=== PATIENT | female | born 1935 | race Caucasian/White ===

== ENCOUNTER 2018-07-07 15:21 | Outpatient (CLI) | payer MEDICARE ==
[2018-07-07 16:04] LABS: Bilirubin Negative (Negative); Blood, Urine Small (Negative); Clarity Clear (Clear); Glucose, Urine (Dipstick) Negative (Negative); Leukocyte Small (Negative); Nitrite Negative (Negative); Protein, Urine (Dipstick) Negative (Neg-Trace); Urobilinogen 0.2 mg/dL (0.2-1.0); pH, Urine 5.5 (5.0-9.0)
[2018-07-07 16:07] LABS: Specific Gravity, Urine 1.007 (1.002-1.036)
[2018-07-07 16:15] LABS: RBC/HPF 21-50 HPF (0-3); WBC/HPF 21-50 HPF (0-3)
[2018-07-07 16:16] LABS: Bacteria/HPF Rare-Few HPF (None Seen); Squamous Epithelial 0-3 HPF (0-3)
== END 2018-07-07 15:22 | disposition home or self-care (01) ==
LOC: MADLAB 15:21
PROVIDERS: ATTEND Family Medicine
DX: I48.91 Unspecified atrial fibrillation (principal); I25.10 Atherosclerotic heart disease of native coronary artery without angina pectoris
CPT/HCPCS: 81001; 87086

== ENCOUNTER 2019-06-29 10:09 | Outpatient (CLI) | payer MEDICARE ==
[2019-06-29 10:46] LABS: Bilirubin Negative (Negative); Blood, Urine Large (Negative); Clarity Cloudy (Clear); Glucose, Urine (Dipstick) Negative (Negative); Leukocyte Small (Negative); Nitrite Positive (Negative); Protein, Urine (Dipstick) 100 mg/dL (Neg-Trace)
[2019-06-29 11:08] LABS: Bacteria/HPF 4+ HPF (None Seen); RBC/HPF Greater than 50 HPF (0-3); Squamous Epithelial None Seen HPF (0-3); WBC/HPF Greater Than 50 HPF (0-3)
== END 2019-06-29 10:10 | disposition home or self-care (01) ==
LOC: MADLAB 10:09
PROVIDERS: ATTEND Family Medicine
DX: E11.22 Type 2 diabetes mellitus with diabetic chronic kidney disease (principal); R31.9 Hematuria, unspecified; N18.9 Chronic kidney disease, unspecified
CPT/HCPCS: 81001; 87077; 87086; 87186